=== PATIENT | female | born 2000 | race Caucasian/White ===

== ENCOUNTER 2021-10-07 07:18 | Emergency (ER) | payer OTHER ==
[~2021-10-07 07:18] MED LIST: CYCLOBENZAPRINE5 MG PO; IBUPROFEN600 MG PO; IBUPROFEN800 MG PO
[2021-10-07] MEDS ORDERED: BENADRYL25 MG PO (08:21)
[2021-10-07] MEDS ORDERED: PREDNISONE50 MG PO (08:21)
== END 2021-10-07 08:30 | disposition home or self-care (01) ==
LOC: ER1 07:18
DX: R21 Rash and other nonspecific skin eruption (principal)
CPT/HCPCS: 96372; 99282; J1200; J2930